=== PATIENT | female | born 1990 | race Caucasian/White ===

== ENCOUNTER 2023-03-01 13:10 | Outpatient (CLI) | payer OTHER, SELFPAY | END 2023-03-01 13:11 | disposition home or self-care (01) | LOC: NFLDREF 03-04 10:15 | PROVIDERS: Visit Provider Obstetrics & Gynecology | DX: O20.9 Hemorrhage in early pregnancy, unspecified (principal) | CPT/HCPCS: 84702; 86900; 86901 ==

== ENCOUNTER 2023-03-04 13:05 | Outpatient (CLI) | payer OTHER, SELFPAY | END 2023-03-04 13:06 | disposition home or self-care (01) | LOC: NFLDREF 03-06 15:55 | PROVIDERS: Visit Provider Obstetrics & Gynecology | DX: O20.9 Hemorrhage in early pregnancy, unspecified (principal) | CPT/HCPCS: 84702 ==

== ENCOUNTER 2023-06-18 09:41 | Outpatient (CLI) | payer OTHER, SELFPAY ==
[2023-06-18 13:22] LABS: Chlamydia DNA Amplified* NOT DETECTED (No Detected); GC DNA Amplified* NOT DETECTED (No Detected)
== END 2023-06-18 09:42 | disposition home or self-care (01) ==
PROVIDERS: Visit Provider Physician Assistant
DX: Z34.91 Encounter for supervision of normal pregnancy, unspecified, first trimester (principal); Z3A.11 11 weeks gestation of pregnancy
CPT/HCPCS: 76801; 86592; 86703; 86704; 86706; 86762; 86787; 86803; 86850; 86900; 86901; 87086; 87340; 87491; 87591

== ENCOUNTER 2023-07-31 14:15 | Outpatient (CLI) | payer OTHER, SELFPAY ==
[2023-07-31 16:49] LABS: Bacterial Vaginosis* NEGATIVE (No Detected); Candida glab/krus NOT DETECTED (No Detected); Candida species NOT DETECTED (No Detected); Trichomonas vaginalis NOT DETECTED (No Detected)
== END 2023-07-31 14:16 | disposition home or self-care (01) ==
LOC: NFLDREF 14:16
PROVIDERS: Visit Provider Obstetrics & Gynecology
DX: N89.8 Other specified noninflammatory disorders of vagina (principal)
CPT/HCPCS: 81513; 87481; 87661

== ENCOUNTER 2023-08-20 09:12 | Outpatient (CLI) | payer OTHER, SELFPAY ==
--- NOTE | 2023-08-20 09:15 | CRLHL7_ITS ---
For Patients: As a result of the 21st Century Cures Act, medical imaging exams and procedure reports are released immediately into your electronic medical record. You may view this report before your referring provider. If you have questions, please contact your health care provider. INDICATION: anatomy survey. ANA by LMP: 01/07/2024. GA: 20w, 0d. FINDINGS: position: Breech. Cervix: Visualized. Technique: Transabdominal. Length of closed cervix: 4.4 cm. Placenta/cord: Anterior. Placenta tip to internal OS: 5.6 cm. Umbilical Cord: 3-vessel cord. Placenta insertion: Central. Amniotic Fluid: 4.0 cm SDP SURVEY: Observed Structures Calvarium/Spine: Cerebellum: 1.8 cm, 19w 0d. Cisterna Magna: 4.6 mm. Lateral Ventricle: 6.0 mm. CSP: Yes. Midline Falx: Yes. Choroid Plexus: Yes. Spine: Yes. Abdomen: Stomach: Yes. Abd Cord Insertion: Yes. Urinary Bladder: Yes. Kidneys: Yes. Diaphragm: Yes. Face: Nose/lips: Yes. Orbital view: Yes. Profile: Yes. Limbs: Upper Extremities: Yes. Lower Extremities: Yes. Hands: Yes. Feet: Yes. Vascular: Four-Chamber Heart: Yes. LVOT: No. RVOT: No. 3VV: Yes. 3VTV: No. BPD: 4.3 cm. 19w 1d, 16 percent. HC: 17.1 cm. 19w 5d, 27 percent. AC: 14.1 cm. 19w 3d, 28 percent. FL: 3.1 cm. 19w 5d, 30 percent. FL/AC: 22.0 percent. HC/AC Ratio: 1.21. Heart rate: 149 beats per minute. age by this US: 19w 3d. ANA by this US: 01/11/2024. EFW: 300g. Weight: 0lbs, 11oz. Percentile by ANA: 23 percent. IMPRESSION: 1. Single viable intrauterine . 2. Measurements are consistent with clinical dates. 3. Suboptimal heart views due to position. Follow-up imaging in several weeks recommended. Willy Talbot M.D. [facility] [email or web address] [email or web address] SP/Dictated by: Willy Talbot MD @ 08/21/2023 11:27:00 AM (Electronically Signed)
== END 2023-08-20 09:13 | disposition home or self-care (01) ==
LOC: US 09:13
PROVIDERS: Visit Provider Obstetrics & Gynecology
DX: Z34.92 Encounter for supervision of normal pregnancy, unspecified, second trimester (principal); Z3A.20 20 weeks gestation of pregnancy
CPT/HCPCS: 76805

== ENCOUNTER 2023-09-18 09:04 | Outpatient (CLI) | payer OTHER, SELFPAY ==
--- NOTE | 2023-09-18 09:15 | US_ITS ---
Patient: JIN KLEIN Facility:?[facility] Patient ID:?[id number] Site Patient ID:?[id number]. Site :?[id number] Study:?US-OB Pelvis f/u missing images-09/18/2023 10:09:46 AM Ordering Physician:RADHA Final Report: INDICATION: Follow-up heart views COMPARISON: 08/20/2023 TECHNIQUE: Real time candelaria scale imaging of the fetus was performed. FINDINGS: Sonographic imaging demonstrates a single living intrauterine gestation. Fetus demonstrates a regular cardiac rate of 150 beats per minute. Fetus has a transverse position. The placenta lies anterior. Amniotic fluid volume appears normal. Single deepest vertical pocket: 5.5 cm. There is a normal four-chamber heart view and the left and right ventricular outflow tracts appear normal. IMPRESSION: Normal heart views. Dictated by Angel Gonzalez MD @ 09/18/2023 11:47:02 AM Signed by:?Angel Gonzalez MD @09/18/2023 11:47:02 AM (Electronic Signature)
== END 2023-09-18 09:05 | disposition home or self-care (01) ==
LOC: US 09:04
PROVIDERS: Visit Provider Obstetrics & Gynecology
DX: O36.8390 Maternal care for abnormalities of the fetal heart rate or rhythm, unspecified trimester, not applicable or unspecified (principal)
CPT/HCPCS: 76816

== ENCOUNTER 2023-10-18 10:12 | Outpatient (CLI) | payer OTHER, SELFPAY | END 2023-10-18 10:13 | disposition home or self-care (01) | LOC: NFLDREF 10-21 05:13 | PROVIDERS: Visit Provider Obstetrics & Gynecology | DX: O34.219 Maternal care for unspecified type scar from previous cesarean delivery (principal); O09.529 Supervision of elderly multigravida, unspecified trimester | CPT/HCPCS: 86592 ==

== ENCOUNTER 2023-12-16 14:57 | Outpatient (CLI) | payer OTHER, SELFPAY ==
[2023-12-17 14:23] LABS: Strep B DNA Probe Negative (Negative)
[2023-12-17 14:44] LABS: Strep B Susceptibility Needed? No
== END 2023-12-16 14:58 | disposition home or self-care (01) ==
LOC: NFLDREF 14:57
PROVIDERS: Visit Provider Obstetrics & Gynecology
DX: Z34.83 Encounter for supervision of other normal pregnancy, third trimester (principal)
CPT/HCPCS: 87081; 87653

== ENCOUNTER 2023-12-31 05:12 | Inpatient (IN) | payer OTHER, SELFPAY ==
[2023-12-31] VITALS (29 sets, daily range): BP systolic 92–127; BP diastolic 56–76; PULSE 44–79; RESP 16–20; TEMP 36.4–37.2; O2SAT 95–99; BMI 37.5
[2023-12-31 06:09] LABS: Hemoglobin* 13.2 gm/dL (12.0-16.0)
[2023-12-31] MEDS: LACTATED RINGERS 1000 ML 1,000 ML 999 ML IV (06:21)
[2023-12-31 06:56] LABS: Basophils Absolute Auto 0.01 K/uL (0.00-0.30); Basophils Percent Auto 0.1 % (0.0-3.0); Eosinophils Absolute Auto 0.04 K/uL (0.00-0.50); Eosinophils Percent Auto 0.4 % (0.0-7.0); Hematocrit 39.4 % (33.0-51.0); Immature Granulocytes Abs Auto 0.03 K/uL (0.00-0.30); Immature Granulocytes Pct Auto 0.3 %; Lymphocytes Percent Auto 19.6 % (20-44); Mean Corpuscular HGB Conc 34 gm/dL (32-36); Mean Corpuscular Hemoglobin 31 pg (26-34); Mean Corpuscular Volume 93 fL (80-100); Monocytes Percent Auto 8.9 % (0.0-11.0); Neutrophils Absolute Auto 6.53 K/uL (1.7-7.0); Neutrophils Percent Auto 70.7 % (42.0-72.0); Platelet Count* 144 K/uL (140-440); RDW Coefficient of Variation % 13.4 % (11.5-15.5); Red Blood Count 4.23 m/uL (4.00-5.20); White Blood Count* 9.24 K/uL (4.50-11.00)
[2023-12-31 07:02] LABS: Slide Review Reflex No
[2023-12-31] MEDS: CEFAZOLIN 2 GM INJ IVP (07:29)
--- NOTE | 2023-12-31 07:50 | W.ANESCHARGE ---
Anesthesia Charges Start Date/Time Anesthesia Start Date: 12/31/23 Anesthesia Start Time: 07:20 Stop Date/Time Anesthesia Stop Date: 12/31/23 Anesthesia Stop Time: 08:58
--- NOTE | 2023-12-31 07:53 | W.ANESCHARGE ---
Anesthesia Charges Start Date/Time Anesthesia Start Date: 12/31/23 Anesthesia Start Time: 07:20 Stop Date/Time Anesthesia Stop Date: 12/31/23 Anesthesia Stop Time: 08:58
--- NOTE | 2023-12-31 08:47 | PM.OBPRCCS ---
Procedure Date of procedure: 12/31/23 Pre-op diagnosis: 1. 39 0/7 weeks gestation 2. History of prior section Post-op diagnosis: same Procedure Done: Global Will [facility] bill your pro fee for this procedure?: Yes Blood Loss Measurement Type: QBL (254 mL) Bakri Used: No Surgeon: Meagan Botello MD Anesthesia Type: Spinal and TAP Block Findings: Live-born female , cephalic presentation, loose nuchal cord x1, Apgars eight nine at one and 5 minutes respectively, weight 7 lb 8 oz. Adhesions between the omentum and anterior abdominal wall, and also between the bladder and lower uterine segment inferiorly. Procedure Name: Repeat low transverse section Procedure Description: After obtaining informed consent, the patient was taken to the operating room where spinal anesthesia was obtained and found to be adequate. She was prepared and draped in the normal sterile fashion in the dorsal supine position with a leftward tilt. A Pfannenstiel skin incision was made with a scalpel along the line of the patient's previous Pfannenstiel scar. This incision was carried down to the underlying layer of fascia with the Bovie. The fascia was incised in the midline and the incision extended laterally. The superior and inferior aspects of the fascial incision were grasped with Travis clamps, elevated and the underlying rectus muscles dissected off sharply and with electrocautery. The omentum was densely adherent to the anterior abdominal wall. Carmalt clamps were placed across the omentum near the anterior peritoneum where adhesed, the omentum was divided with scissors, and the pedicles suture ligated with 0 chromic. Excellent hemostasis was obtained. The rectus muscles were then in the midline. The adhesions between the bladder and lower uterine segment were taken down sharply with Metzenbaum scissors where necessary. The Aubrey O retractor was then placed into the incision. The lower uterine segment was then incised in a transverse fashion with the scalpel. Upon entry into the uterus, clear amniotic fluid was noted. The uterine incision was extended laterally with blunt finger fractionation. The infant's head was delivered atraumatically, the nuchal cord was reduced over the head, then the remainder of the infant's bodywas delivered. The nose and mouth were suctioned with the bulb suction. The cord was doubly clamped and cut after a 30-60 second delay, and the infant was handed off the field for evaluation. The placenta was delivered spontaneously with umbilical cord traction and fundal massage. The uterus was cleared of all clots and debris. The uterine incision was reapproximated in a running locking fashion with a 0 chromic suture. A 2nd layer of the same suture was used to imbricate in horizontal fashion. Excellent hemostasis was obtained with the closure in two layers. The gutters were irrigated and suctioned. All instruments and retractors were removed. The anterior peritoneum was reapproximated in a running fashion with a 3-0 Vicryl suture. The subfascial tissues were carefully inspected and hemostasis assured. The fascia was reapproximated in a running fashion with a looped 0 Maxon suture. The subcutaneous tissues were copiously irrigated. Hemostasis was assured. The subcutaneous fat layer was reapproximated with 3 interrupted sutures of 3-0 plain gut. The skin was closed in a subcuticular fashion with 4-0 Vicryl. Surgical glue and dressing were applied. The patient tolerated the procedure well. Sponge, lap, needle, and instrument counts were reported as correct x2. The patient was taken to the recovery room, awake, and in stable condition. She did receive 2 grams of IV Ancef preoperatively and 30 mg IV Toradol at the conclusion of the procedure. The tap block was done at the conclusion of the procedure by Anesthesia. Complications: None Pathology: none sent Surgery Debrief Performed: Yes Surgery Debrief Comment: Items reviewed: Surgery performed, no complications, estimated blood loss, no pathology to be sent, blood type Rh positive. Condition: stable Disposition: floor [place] total score - 1 minute: 8 total score - 5 minute: 9
--- NOTE | 2023-12-31 08:53 | W.PM.H&PU ---
History & Physical Update History & Physical Update H&P Reviewed and patient assessed: No changes noted
--- NOTE | 2023-12-31 09:39 | P.NB_ITS ---
Nerve Block Nerve Block Time Seen by Provider: 08:50 Date Seen: 12/31/23 Type of block requested by surgeon for post-operative analgesia: TAP Side: bilateral Time out performed: Yes Verification of patient name: Yes Verification of date of : Yes Site marking: site marked Name of person performing procedure: Yousuf Continuous monitoring Was continuous monitoring of O2 sat, B/P, cardiac cath technician, recorded every 15 minutes?: Yes Procedure Checklist: sterile prep, needles and gloves Ultrasound guided. Images saved: Yes Medications given in 5ml increments after negative aspiration: Marcaine %: 0.25 mL: 30 Needle gauge: 20 and Exparel mL: 10 Patient tolerated procedure well: Yes Additional comments: Needle noted between internal oblique and transversus abdominus. Local spread visualized Block Charges Block Charge (with Pro Fee): TAP Bilateral Use of Ultrasound Machine for Block: Yes- US Guidance/pain block
[2023-12-31] MEDS: ACETAMINOPHEN 500 MG TABLET 1000 MG PO ×3 (11:35→23:43)
[2023-12-31] MEDS: diphenhydrAMINE 50 MG/ML inj 12.5 MG IVP (11:45)
[2023-12-31] MEDS: KETOROLAC 30 MG/ML inj IVP (13:59)
[2023-12-31] MEDS: DOCUSATE SODIUM 100 MG CAPSULE PO (17:49)
[2023-12-31] MEDS: diphenhydrAMINE 25 MG CAPSULE PO (19:59)
[2023-12-31] MEDS: IBUPROFEN 600 MG TABLET PO (19:59)
[2024-01-01] MEDS: IBUPROFEN 600 MG TABLET PO ×2 (04:40→11:27)
[2024-01-01 05:40] VITALS: BP 97/67; PULSE 77; RESP 16; TEMP 36.6; O2SAT 97
[2024-01-01 06:46] LABS: Hemoglobin* 11.5 gm/dL (12.0-16.0)
[2024-01-01] MEDS: ACETAMINOPHEN 500 MG TABLET 1000 MG PO (08:51)
[2024-01-01] MEDS: DOCUSATE SODIUM 100 MG CAPSULE PO (08:51)
[2024-01-01 10:14] VITALS: BP 109/74; PULSE 77; RESP 16; TEMP 36.6; O2SAT 96
--- NOTE | 2024-01-01 11:02 | P.DS_ITS ---
DS: Providers Provider Date Seen: 01/01/24 Date of admission: 12/31/23 05:12 Primary care physician: Not a Local Provider Admitting Clinician: Meagan Botello MD Attending Physician on discharge: Meagan Botello MD Date of Discharge: 01/01/24 DS: Diagnosis Discharge Diagnosis (1) Lactating mother: Status: Acute (2) care following delivery: Status: Acute Exam Narrative: Exam Narrative: GENERAL APPEARANCE:? normal affect, alert, no distress? MOOD:? appropriate? CHEST:? clear to auscultation and percussion? HEART:? regular rate and rhythm? ABDOMEN:? soft, non-tender the uterine fundus is U/2 and is appropriate for the stage of recovery. Incision well approximated without drainage, redness or warmth.? EXTREMITIES:? normal and no edema? Const: Vital Signs, click to edit/add: Vital Signs - 24 hr 12/31/23 11:15 12/31/23 11:30 12/31/23 11:50 Temperature 97.6 F Pulse Rate [Bilate ral Dorsalis Pedis ] 48 L 46 L Respiratory Rate 18 18 Blood Pressure [Le ft Arm] 104/63 94/63 Pulse Oximetry Oxygen Delivery Me thod 12/31/23 12:50 12/31/23 13:50 12/31/23 14:50 Temperature Pulse Rate [Bilate ral Dorsalis Pedis ] Respiratory Rate 18 18 20 Blood Pressure [Le ft Arm] Pulse Oximetry Oxygen Delivery Me thod 12/31/23 15:50 12/31/23 16:50 12/31/23 17:43 Temperature 98.2 F Pulse Rate [Bilate ral Dorsalis Pedis ] 58 L Respiratory Rate 18 16 16 Blood Pressure [Le ft Arm] 109/68 Pulse Oximetry 95 Oxygen Delivery Me thod Room Air 12/31/23 17:50 12/31/23 20:00 12/31/23 23:50 Temperature 98.2 F 98.9 F Pulse Rate [Bilate ral Dorsalis Pedis ] 58 L 62 Respiratory Rate 16 16 16 Blood Pressure [Le ft Arm] 92/59 L 99/64 Pulse Oximetry 96 95 Oxygen Delivery Me thod Room Air Room Air 01/01/24 05:40 01/01/24 10:14 Temperature 97.8 F 98 F Pulse Rate [Bilate ral Dorsalis Pedis ] 77 77 Respiratory Rate 16 16 Blood Pressure [Le ft Arm] 97/67 109/74 Pulse Oximetry 97 96 Oxygen Delivery Me thod Room Air Room Air OB - DS: Summary Hospital Course Hospital Course: Ashley is a 33 year old G 5 P 2 at 39.0 weeks gestation that was admitted to the Center on 12/31/23 for repeat delivery. She had an uncomplicated delivery. She delivered a viable female . She is breast feeding and denies concerns with how it is going. the patient has done well. Her pain is well controlled with current medications.? She has no new complaints.? Urinary output is adequate and she is voiding without difficulty.? Has a good appetite, is tolerating a general diet, is passing flatus, and has not had a bowel movement.? Has scant amount of rubra lochia.? She is ambulating well. She is unsure what she is planning for contraception management. Reviewed options while she is breast feeding. She is requested discharge after 24 hours if baby passes all of its testing.Discussed risks with early discharge after a including increase pain not able to be managed at home and increased risk of readmission. She is aware of these risks and would still like to discharge. She will return in 1 week for an incision check. Peripartum Data delivery method: Repeat Section Procedures: Procedures Operation Date: 12/31/23 07:15 Actual Procedure Side Surgeon p Repeat Section Meagan Botello MD complications: none [place] Gender: Female Discharge Plan: Home Status at Discharge Functional status at discharge: independent ambulation Overall status at discharge: patient is progressing back to baseline Time Spent with Patient Time attestation: Total time spent providing and/or coordinating discharge services: Discharge Plan Discharge Disposition: Home, Self-Care Date of Admission: 12/31/23 05:12 Attending Provider on Discharge: Ramya Napier Primary Care Provider: Provider,Not a Local Condition: Stable Anticipated Discharge Date/Time: 01/01/24 12:00 Discharge Medications: New docusate sodium 100 mg Capsule 100 mg PO DAILY Qty: 90 0RF Rx Instructions: Take 1-2 tablets daily as needed for constipation. ibuprofen 600 mg Tablet 600 mg PO Q6H PRNQty: 90 0RF oxycodone 5 mg Tablet 5 - 10 mg PO Q4H PRN (Reason: Pain) Qty: 10 0RF Continued famotidine [Zantac-360 (famotidine)] 20 mg tablet 20 mg PO QDAY DHA 200 mg capsule 200 mg PO DAILY cholecalciferol (vitamin D3) 10 mcg (400 unit) capsule 10 mcg PO QDAY Discharge Orders: Discharge Order (Routine); Ordered 01/01/24 Ordered By: Ramya Napier Patient Education: OB /Breast Feeding Additional Instructions: Discharge instructions were reviewed with the patient including signs and symptoms of infection and home going medications? ?? Activity restrictions:? Lifting Restrictions: 20 pounds for 6 weeks? No high-impact or core exercises for 6 weeks.?? No not submerge incision under water X 2 weeks?? Nothing vaginally for 6 weeks: no tampons or intercourse? Do not drive while taking narcotic pain medication(s)? Off Work or School for 8 weeks? ?? Symptoms to report to doctor:? -Bleeding that saturates more than one pad per hour? -Passing clots larger than the size of a golf ball? -Pain not relieved by prescribed medication? -Fever above 100.4 degrees Fahrenheit? -A foul vaginal odor? -Difficulty in emotions, mood and functions? -Thoughts of hurting yourself and/or ? -Painful, reddened area in your breast? -Any drainage, redness or tenderness in your IV/epidural site? -Severe headache that doesn't improve after taking medications? -Changes in vision, including temporary loss of vision, blurred vision, and/or light sensitivity? -Upper abdominal pain (usually under ribs on the right side)? -Decrease in urination or painful, frequent urinating? -Chest pain? -Shortness of breath? -Tenderness or pain with redness and/swelling in the calf(s) of your leg? Follow up visits:?? 1. 1 week visit:? incision check.? 2. 2-week visit: discuss feeding/care concerns, review control options and screen for anxiety/depression.? 3. 6-week visit for an annual exam.? ?? consultation services are available to all mothers and babies for the first year after delivery.? To make an appointment, please call [phone].? Discharge Diet: Regular Follow Up Appointments: [facility] [Provider Group] Provider,Not a Local [Primary Care Provider] - Forms: [employer] Info Instructions
[2024-01-01 18:06] LABS: Rapid Plasma Reagin (RPR) Non Reactive (Non Reactive)
== END 2024-01-01 12:20 | disposition home or self-care (01) | DRG 788 ==
PROVIDERS: Admitting Provider Obstetrics & Gynecology; Visit Provider Obstetrics & Gynecology
PROC: 10D00Z1 Extraction of Products of Conception, Low, Open Approach (ICD-10-PCS; CPT 59514; principal; 2023-12-31 07:15)
DX: O34.211 Maternal care for low transverse scar from previous cesarean delivery (principal); O99.62 Diseases of the digestive system complicating childbirth; K66.0 Peritoneal adhesions (postprocedural) (postinfection); G89.18 Other acute postprocedural pain; Z3A.39 39 weeks gestation of pregnancy; Z37.0 Single live birth
CPT/HCPCS: 01961; 36415; 64488; 76942; 85018; 85025; 86592; 86850; 86900; 86901; A9270; C9290; J0665; J0690; J1100; J1200; J1885; J2274; J2371; J2405; J2590; J7120

== ENCOUNTER 2025-05-25 13:55 | Outpatient (CLI) | payer OTHER, SELFPAY ==
--- NOTE | 2025-05-25 13:45 | CRLHL7_ITS ---
For Patients: As a result of the Cures Act, medical imaging exams and procedure reports are released immediately into your electronic medical record. You may view this report before your referring provider. If you have questions, please contact your health care provider. LMP: 03/29/2025. ANA by LMP: 01/03/2026. GA: 8w, 1d. INDICATION: Dating and viability. CRL: 2.1 cm, 8w 5d. ANA 12/30/2025. FHR: 171 bpm. GESTATIONAL SAC: 3.3 cm appears within normal limits. YOLK SAC: 3.7 mm, appears within normal limits. RIGHT OVARY: Within normal limits, 3.8 x 2.4 x 1.9 cm. CL. LEFT OVARY: Within normal limits, 2.7 x 0.9 x 1.8 cm. IMPRESSION: 1. Single living intrauterine measures 8 weeks 5 days with a sonographic due date 12/30/2025. 2. Subchorionic hemorrhage measures 2.0 x 0.7 x 0.8 cm. 3. Corpus luteal cyst right ovary measures 2.0 x 2.1 x 1.8 cm. Angel Gonzalez M.D. Diagnostic Radiologist [email or web address] bM/Dictated by: Angel Gonzalez MD @ 05/25/2025 2:55:00 PM (Electronically Signed)
== END 2025-05-25 13:56 | disposition home or self-care (01) ==
LOC: US 13:55
PROVIDERS: Visit Provider Physician Assistant
DX: O20.9 Hemorrhage in early pregnancy, unspecified (principal); O34.91 Maternal care for abnormality of pelvic organ, unspecified, first trimester; N83.11 Corpus luteum cyst of right ovary; Z3A.08 8 weeks gestation of pregnancy
CPT/HCPCS: 76801; 83021; 86703; 86706; 86803; 86850; 86900; 86901; 87086; 87340